=== PATIENT | male | born 1950 | race African-American/Black ===

== ENCOUNTER 2021-09-06 10:06 | Inpatient (IN) | payer MEDICARE, MEDICAID ==
[~2021-09-06] VITALS: Ht 175.3 cm; Wt 49.9 kg
[2021-09-06 11:38] LABS: HEMATOCRIT. 42.9 % (42.0-52.0); HEMOGLOBIN. 14.3 g/dL (14.0-18.0); LYMPHOCYTES % 29.7 % (20.0-50.0); MEAN CORPUSCULAR HEMOGLOBIN 28.5 pg (28.0-32.0); MEAN CORPUSCULAR VOLUME 85.7 fL (80.0-94.0); MEAN PLATELET VOLUME 7.4 fl (7.4-10.4); MONOCYTES % 10.6 % (2.0-8.0); NEUTROPHILS % 57.7 % (40.0-76.0); PLATELET 290 x1000/uL (130-400); RED BLOOD CELL COUNT 5.01 mill/uL (4.7-6.1); RED CELL DISTRIBUTION WIDTH 14.5 % (11.6-14.6)
[2021-09-06 11:47] LABS: CLARITY URINE CLEAR (CLEAR); COLOR URINE YELLOW (YELLOW); KETONES URINE NEGATIVE (NEGATIVE); LEUKOCYTE ESTERASE URINE NEGATIVE (NEGATIVE); NITRITE URINE NEGATIVE (NEGATIVE); OCCULT BLOOD URINE NEGATIVE (NEGATIVE); PROTEIN URINE NEGATIVE (NEGATIVE); SPECIFIC GRAVITY URINE 1.024 (1.005-1.030)
[2021-09-06 11:56] LABS: CHLORIDE 101 mEq/L (98-107)
[2021-09-06 13:35] VITALS: BP 152/82
[2021-09-06] MEDS ORDERED: ONDANSETRON HCL 4MG/2ML INJ IV PRN (14:45)
[2021-09-06] MEDS ORDERED: POTASSIUM CHLORIDE 20MEQ TABLET SR PO NR (15:30)
[2021-09-06] MEDS ORDERED: LACTULOSE 20G/30ML UDC PO NR (15:30)
[2021-09-06 16:00] VITALS: BP 148/76
[2021-09-06] MEDS: DOCUSATE SODIUM 250MG CAPSULE PO SCH (17:06)
[2021-09-06 20:00] VITALS: BP 140/71
[2021-09-06 21:10] LABS: *AMPHETAMINES SCREEN URINE NEGATIVE (NEGATIVE); *BARBITURATES SCREEN URINE NEGATIVE (NEGATIVE); *BENZODIAZEPINES SCREEN URINE NEGATIVE (NEGATIVE); *COCAINE SCREEN URINE PRESUMTIVE POSITIVE (NEGATIVE); METHADONE URINE SCREEN NEGATIVE (NEGATIVE); OPIATES URINE SCREEN NEGATIVE (NEGATIVE)
[2021-09-06 21:11] LABS: CANNABINOID URINE SCREEN PRESUMTIVE POSITIVE (NEGATIVE); PHENCYCLIDINE URINE SCREEN NEGATIVE (NEGATIVE)
[2021-09-06] MEDS: LACTULOSE 20G/30ML UDC PO SCH (22:05)
[2021-09-07] VITALS: BP 147/69
[2021-09-07 04:00] VITALS: BP 157/76
[2021-09-07] MEDS: ACETAMINOPHEN 650MG/20.3ML UDC PO PRN ×2 (04:52→16:50)
[2021-09-07] MEDS: LACTULOSE 20G/30ML UDC PO SCH ×3 (04:53→21:20)
[2021-09-07 08:00] VITALS: BP 166/89
[2021-09-07] MEDS: DOCUSATE SODIUM 250MG CAPSULE PO SCH (08:45)
[2021-09-07] MEDS ORDERED: AMLODIPINE 5MG TABLET PO SCH (09:00)
[2021-09-07 09:01] LABS: CHLORIDE 106 mEq/L (98-107)
[2021-09-07 10:19] LABS: BASOPHILS % 0.9 % (0.0-2.0); EOSINOPHILS % 1.7 % (0.0-5.0); HEMATOCRIT. 39.5 % (42.0-52.0); HEMOGLOBIN. 12.9 g/dL (14.0-18.0); LYMPHOCYTES % 27.3 % (20.0-50.0); MEAN CORPUSCULAR HEMOGLOBIN 28.2 pg (28.0-32.0); MEAN CORPUSCULAR VOLUME 86.3 fL (80.0-94.0); MEAN PLATELET VOLUME 7.5 fl (7.4-10.4); MONOCYTES % 8.6 % (2.0-8.0); NEUTROPHILS % 61.5 % (40.0-76.0); PLATELET 258 x1000/uL (130-400); RED BLOOD CELL COUNT 4.58 mill/uL (4.7-6.1); RED CELL DISTRIBUTION WIDTH 14.5 % (11.6-14.6)
[2021-09-07] MEDS ORDERED: IOHEXOL-300 100 ML BOTTLE ONE (11:39)
[2021-09-07 12:00] VITALS: BP 160/65
[2021-09-07] MEDS ORDERED: LACTULOSE 20G/30ML UDC PO NR (14:00)
[2021-09-07 16:00] VITALS: BP 189/79
[2021-09-07] MEDS: AMLODIPINE 5MG TABLET PO SCH (16:49)
[2021-09-07 20:00] VITALS: BP 125/65
[2021-09-08] VITALS: BP 124/62
[2021-09-08 04:00] VITALS: BP 128/60
[2021-09-08] MEDS: LACTULOSE 20G/30ML UDC PO SCH ×2 (06:11→14:00)
[2021-09-08 07:11] LABS: PROTHROMBIN TIME 10.9 sec (9.6-11.0)
[2021-09-08 07:16] LABS: BASOPHILS % 0.8 % (0.0-2.0); EOSINOPHILS % 2.4 % (0.0-5.0); HEMATOCRIT. 41.1 % (42.0-52.0); HEMOGLOBIN. 13.7 g/dL (14.0-18.0); LYMPHOCYTES % 26.2 % (20.0-50.0); MEAN CORPUSCULAR HEMOGLOBIN 28.6 pg (28.0-32.0); MEAN CORPUSCULAR VOLUME 85.9 fL (80.0-94.0); MEAN PLATELET VOLUME 7.2 fl (7.4-10.4); MONOCYTES % 9.4 % (2.0-8.0); NEUTROPHILS % 61.2 % (40.0-76.0); PLATELET 264 x1000/uL (130-400); RED BLOOD CELL COUNT 4.78 mill/uL (4.7-6.1); RED CELL DISTRIBUTION WIDTH 14.2 % (11.6-14.6)
[2021-09-08 07:30] LABS: CHLORIDE 105 mEq/L (98-107)
[2021-09-08 08:00] VITALS: BP 130/61
[2021-09-08] MEDS: DOCUSATE SODIUM 250MG CAPSULE PO SCH (10:04)
[2021-09-08] MEDS: AMLODIPINE 5MG TABLET PO SCH (10:05)
[2021-09-08 12:00] VITALS: BP 110/58
== END 2021-09-08 15:20 | disposition home or self-care (01) | DRG 241 ==
LOC: ER 10:06 → 6EST 11:24 → ENRESERV 11:46
PROVIDERS: ADMIT Internal Medicine Nephrology; ATTEND Internal Medicine Nephrology
DX: K29.70 Gastritis, unspecified, without bleeding (principal); E44.1 Mild protein-calorie malnutrition; K86.89 Other specified diseases of pancreas; R62.7 Adult failure to thrive; K52.9 Noninfective gastroenteritis and colitis, unspecified; K59.00 Constipation, unspecified; E78.00 Pure hypercholesterolemia, unspecified; E78.5 Hyperlipidemia, unspecified; F14.90 Cocaine use, unspecified, uncomplicated; N40.0 Benign prostatic hyperplasia without lower urinary tract symptoms; E87.6 Hypokalemia; G89.29 Other chronic pain; I10 Essential (primary) hypertension; Z87.891 Personal history of nicotine dependence; Z68.1 Body mass index [BMI] 19.9 or less, adult; K76.9 Liver disease, unspecified; R63.4 Abnormal weight loss; R74.8 Abnormal levels of other serum enzymes
CPT/HCPCS: 36415; 71045; 71260; 74176; 74177; 74181; 76700; 80048; 80053; 80076; 80305; 81003; 82105; 82378; 84153; 85025; 86301; 86304; 99285; Q9967; G0103